=== PATIENT | female | born 1980 | race Caucasian/White ===

== ENCOUNTER 2017-09-21 01:02 | Emergency (ER) | payer OTHER ==
[~2017-09-21] VITALS: Ht 170.2 cm; Wt 52.2 kg
[~2017-09-21 01:02] MED LIST: CELEXA10 MG PO; DILANTIN100 MG; DILANTIN100 MG PO; FLEXERIL PO; KEFLEX500 MG PO; KEPPRA 500 MG500 M1 PO; LAMICTAL100 MG PO; NORCO 5-325 TA1 EACH PO; PRAZOSIN 1 MG CA1 MG PO; REMERON15 MG PO; SEROQUEL 25 MG25 M1 PO; SEROQUEL 50 MG50 MG PO; TOPAMAX 100 MG100 MG PO; TRINATE TABLET1 EACH PO
[2017-09-21 01:40] LABS: ABSOLUTE BASOPHILS 0.1 thou/uL (0.0-0.2); ABSOLUTE EOSINOPHILS 0.1 thou/uL (0.0-0.7); ABSOLUTE MONOCYTES 0.6 thou/uL (0.0-1.2); ABSOLUTE NEUTROPHILS 3.8 thou/uL (1.6-8.1); EOSINOPHILS 1.3 %; HEMATOCRIT 36.3 % (37.0-47.0); HEMOGLOBIN 12.8 gm/dL (12.0-15.0); LYMPHOCYTES 31.1 %; MCH 31.3 pg (26.0-34.0); MCHC 35.3 g/dL (28.0-37.0); MCV 88.6 fL (80.0-100.0); MPV 7.8 fl. (7.2-11.1); NUCLEATED RBCS 0 /100WBC; PLATELET COUNT* 260 thou/uL (150-400); POLYS 57.6 %; WBC 6.5 thou/uL (4.0-11.0)
[2017-09-21 01:41] LABS: CALCIUM 8.7 mg/dL (8.5-10.1); CREATININE 0.8 mg/dL (0.6-1.3); POTASSIUM 3.6 mmol/L (3.5-5.1)
[2017-09-21 01:46] LABS: ALBUMIN 3.6 g/dL (3.4-5.0); TOTAL BILIRUBIN 0.3 mg/dL (<0.1-1.0); TOTAL PROTEIN 6.6 g/dL (6.4-8.2)
[2017-09-21 04:33] VITALS: BP 98/56
[2018-03-19] MEDS ORDERED: ATIVAN0.5 MG PO (01:20)
== END 2017-09-21 04:35 | disposition home or self-care (01) ==
LOC: M.ERS 01:02
PROVIDERS: Family Medicine
DX: R10.31 Right lower quadrant pain (principal); F32.9 Major depressive disorder, single episode, unspecified; F43.10 Post-traumatic stress disorder, unspecified; Z86.14 Personal history of Methicillin resistant Staphylococcus aureus infection; Z88.5 Allergy status to narcotic agent; Z88.0 Allergy status to penicillin; Z88.8 Allergy status to other drugs, medicaments and biological substances; F17.210 Nicotine dependence, cigarettes, uncomplicated